=== PATIENT | female | born 1980 | race American Indian/Alaskan Native ===

== ENCOUNTER 2017-07-04 12:18 | Emergency (ER) | payer MEDICAID ==
[2017-07-04 13:06] VITALS: BP 126/82
[2017-07-04] MEDS ORDERED: MOTRIN PO ONE (15:12)
--- NOTE | 2017-07-04 15:15 | Emergency Department Report ---
HPI - General Chief Complaint: Abdominal Pain Time Seen by Provider: 07/04/17 14:51 - HPI HPI: This is a 37-year-old female with no prior medical history other than bilateral tubal ligation couple years ago presents to ED complaining of dysmenorrhea times this month patient states that usually her menstrual cycle lesion that is painful but this cycle that started today a has been more painful than other months. She states that she is having low pelvic cramping and sometimes can feel the pain at the back. She admits mild nausea but no vomiting. She denies dysmenorrhea, frequency, fever, chills, abdominal pain, chest pain shortness of breath. ED Past Medical Hx - Past Medical History Previous Medical History?: No - Social History Smoking Status: Current Every Day Smoker - Medications Home Medications: Home Medications Medication Instructions Recorded Confirmed Last Taken Type Ibuprofen [Motrin 800 MG tab] 800 mg PO TID #30 tablet 07/04/17 Unknown Rx Multivitamin/Iron/Folic Acid [Hm 1 each PO DAILY #60 tablet 07/04/17 Unknown Rx Complete Women Tablet] traMADol [Ultram 50 MG tab] 50 mg PO Q6HR PRN #20 tablet 07/04/17 Unknown Rx ED Review of Systems ROS: Stated complaint: ABDOMINAL/BACK PAIN Other details as noted in HPI Constitutional: denies: chills, fever Eyes: denies: eye pain, eye discharge, vision change ENT: denies: ear pain, throat pain Respiratory: denies: cough, shortness of breath, wheezing Cardiovascular: denies: chest pain, palpitations Endocrine: no symptoms reported Gastrointestinal: denies: abdominal pain, nausea, diarrhea Genitourinary: denies: urgency, dysuria, discharge Musculoskeletal: denies: back pain, joint swelling, arthralgia Skin: denies: rash, lesions Neurological: denies: headache, weakness, paresthesias Psychiatric: denies: anxiety, depression Hematological/Lymphatic: denies: easy bleeding, easy bruising Physical Exam - Physical Exam Vital Signs: Vital Signs 07/04/17 13:02 Temperature 97.7 F Pulse Rate 67 Respiratory 16 Rate Blood Pressure 126/82 O2 Sat by Pulse 98 Oximetry Physical Exam: GENERAL: Alert and oriented x3, no apparent distress, Normal Gait, atraumatic. HEAD: Head is normocephalic and a-traumatic. EYES: Extra ocular muscles are intact. Pupils are equal, round, and reactive to light and accommodation. LUNGS: Symetrical with respiration, No wheezing, no rales or crackles, CTAB. HEART: S1, S2 present, regular rate and rhythm without murmur, no rubs, no gallops. Non tender to palpation ABDOMEN: No organomegaly was noted,Positive bowel sounds, soft, and non- distended. . Nontender to palpation on all Quadrants, NO CVA tenderness. BACK: Full range of motion, no spinal tenderness, nontender to palpation. SKIN: Warm and dry, No lesions, No ulceration or induration present. ED Course Vital Signs 07/04/17 13:02 Temperature 97.7 F Pulse Rate 67 Respiratory 16 Rate Blood Pressure 126/82 O2 Sat by Pulse 98 Oximetry ED Medical Decision Making - Medical Decision Making 37-year-old female presents with dysmenorrhea ED course: Patient received 800 mg of Motrin in the ED I discussed the patient has several causes of dysmenorrhea includes fibroids. I discussed the patient will need to follow-up with her [employer] doctor. Vital signs are normal patient is in no acute distress. Patient states that she had a bilateral tubal ligation and knows that she is not so test is not indicated. Patient had no neuro deficits. Critical care attestation.: If time is entered above; I have spent that time in minutes in the direct care of this critically ill patient, excluding procedure time. ED Disposition Clinical Impression: Dysmenorrhea Disposition: DC-01 TO HOME OR SELFCARE Is pt being admited?: No Does the pt Need Aspirin: No Condition: Stable Instructions: Abdominal Pain (ED), Dysmenorrhea (ED) Additional Instructions: Make sure to follow up with the primary care physician as discussed. Take all your medications as you've been prescribed. If you have any worsening symptoms or develop new symptoms please return to ED immediately. Prescriptions: Ibuprofen [Motrin 800 MG tab] 800 mg PO TID #30 tablet Multivitamin/Iron/Folic Acid [Hm Complete Women Tablet] 1 each PO DAILY #60 tablet traMADol [Ultram 50 MG tab] 50 mg PO Q6HR PRN #20 tablet PRN Reason: Pain Referrals: PRIMARY MD LY [Primary Care Provider] - 3-5 Days GAMA PIMENTEL MD [Referring] - 3-5 Days [facility] [Outside] - 3-5 Days [facility] [Outside] - 3-5 Days Forms: Accompanied Note, Work/School Release Form(ED) Time of Disposition: 15:24
[2017-07-04] MEDS ORDERED: ZOFRAN ODT PO ONE (15:21)
== END 2017-07-04 16:02 | disposition home or self-care (01) ==
LOC: ED 12:18
DX: N94.6 Dysmenorrhea, unspecified (principal); F17.200 Nicotine dependence, unspecified, uncomplicated; Z98.51 Tubal ligation status
CPT/HCPCS: 99282; Q0162

== ENCOUNTER 2018-11-10 22:58 | Emergency (ER) | payer MEDICAID ==
[2018-11-10 23:34] VITALS: BP 154/100
[2018-11-10] MEDS ORDERED: TYLENOL ONE (23:43)
[2018-11-10] MEDS ORDERED: TYLENOL PO ONE (23:45)
[2018-11-11] MEDS ORDERED: FLEXERIL PO ONE (00:54)
[2018-11-11] MEDS ORDERED: TORADOL IM ONE (00:54)
[2018-11-11] MEDS ORDERED: DECADRON IM ONE (00:54)
[2018-11-11] MEDS ORDERED: DECADRON ONE (00:58)
[2018-11-11] MEDS ORDERED: FLEXERIL ONE (00:58)
[2018-11-11] MEDS ORDERED: TORADOL ONE (00:58)
[2018-11-11 01:05] LABS: HCG Qualitative,Urine Negative (Negative)
--- NOTE | 2018-11-11 01:20 | Cat Scan Report ---
CT head/brain wo con INDICATION / CLINICAL INFORMATION: fall. Neck pain. TECHNIQUE: All CT scans at this location are performed using CT dose reduction for ALARA by means of automated e xposure control. COMPARISON: None available. FINDINGS: Ventricle size is normal. No mass or mass effect is seen. There is no evidence of intracranial hemorr fidelia. No obvious area of infarction is identified. Visualized paranasal sinuses are clear. No fractur e is seen. IMPRESSION: No acute findings Signer Name: Miles Stoddard MD FACR Signed: 11/11/2018 1:16 AM Workstation Name: [id number]
--- NOTE | 2018-11-11 01:22 | Cat Scan Report ---
CT cervical spine wo con INDICATION / CLINICAL INFORMATION: fall. Neck pain. TECHNIQUE: All CT scans at this location are performed using CT dose reduction for ALARA by means of automated e xposure control. COMPARISON: None available. FINDINGS: The prevertebral soft tissues are normal in thickness. Mild degenerative changes seen at C5-6. No adriana dence of a fracture. Alignment is normal. No spinal stenosis is seen. The paraspinous soft tissues ar e normal in appearance. IMPRESSION: Mild degenerative change at C5-6 without evidence of a fracture. Signer Name: Miles Stoddard MD FACPricilla Signed: 11/11/2018 1:17 AM Workstation Name: [id number]
--- NOTE | 2018-11-11 01:31 | Emergency Department Report ---
ED Neck Pain/Injury HPI - General Chief Complaint: Neck Pain/Injury Stated Complaint: CANT MOVE NECK Mode of arrival: Ambulatory Limitations: No Limitations - History of Present Illness Initial Comments: pt is a 38 y/o aaf who had a GLF tonight now with 7/10 right posterior neck pain , pt denies loc there is no swelling no deformity no swelling no abrasion laceration or bleeding , pt denies headache pt was immediately ambulatory with steady gait. pain is exacerbated by movement, pain is relieved by rest. MD Complaint: neck injury Onset/Timin -: hour(s) Place: home Severity: moderate Severity scale (0 -10): 7 Quality: aching Consistency: constant Improves With: remaining still Worsens With: movement of neck Context: fall Associated Symptoms: none. denies: headache, fever, numbness, tingling, vertigo, difficulty walking, swollen glands, difficulty swallowing, nausea, vomiting Treatments Prior to Arrival: none - Related Data Previous Rx's Medication Instructions Recorded Last Taken Type Ibuprofen [Motrin 800 MG tab] 800 mg PO TID #30 tablet 07/04/17 Unknown Rx Multivitamin/Iron/Folic Acid [Hm 1 each PO DAILY #60 tablet 07/04/17 Unknown Rx Complete Women Tablet] traMADol [Ultram 50 MG tab] 50 mg PO Q6HR PRN #20 tablet 07/04/[address] (Nf) 50 mg PO TID 10 Days #30 tab 11/11/18 Unknown Rx Menthol/Camphor [[place] 1 applicatio TP QID PRN #1 tube 11/11/18 Unknown Rx Ointment] methOCARBAMOL [Robaxin TAB] 750 mg PO Q8H PRN #30 tablet 11/11/18 Unknown Rx predniSONE [Deltasone] 40 mg PO QDAY 5 Days #10 tab 11/11/18 Unknown Rx traMADol [Ultram] 50 mg PO Q6HR PRN #12 tablet 11/11/18 Unknown Rx Allergies Allergy/AdvReac Type Severity Reaction Status Date / Time No Known Allergies Allergy Verified 11/10/18 23:42 ED Review of Systems ROS: Stated complaint: CANT MOVE NECK Other details as noted in HPI Constitutional: denies: chills, fever Eyes: denies: eye pain, eye discharge, vision change ENT: denies: ear pain, throat pain Respiratory: denies: cough, shortness of breath, wheezing Cardiovascular: denies: chest pain, palpitations Endocrine: no symptoms reported Gastrointestinal: denies: abdominal pain, nausea, vomiting, diarrhea Genitourinary: denies: urgency, dysuria, discharge Musculoskeletal: arthralgia Skin: denies: rash, lesions Neurological: denies: headache, weakness, numbness, paresthesias, confusion, abnormal gait Psychiatric: denies: anxiety, depression Hematological/Lymphatic: denies: easy bleeding, easy bruising ED Past Medical Hx - Past Medical History Previous Medical History?: No - Surgical History Past Surgical History?: No - Social History Smoking Status: Current Every Day Smoker Substance Use Type: Marijuana - Medications Home Medications: Home Medications Medication Instructions Recorded Confirmed Last Taken Type Ibuprofen [Motrin 800 MG tab] 800 mg PO TID #30 tablet 07/04/17 Unknown Rx Multivitamin/Iron/Folic Acid [Hm 1 each PO DAILY #60 tablet 07/04/17 Unknown Rx Complete Women Tablet] traMADol [Ultram 50 MG tab] 50 mg PO Q6HR PRN #20 tablet 07/04/[address] (Nf) 50 mg PO TID 10 Days #30 tab 11/11/18 Unknown Rx Menthol/Camphor [[place] 1 applicatio TP QID PRN #1 tube 11/11/18 Unknown Rx Ointment] methOCARBAMOL [Robaxin TAB] 750 mg PO Q8H PRN #30 tablet 11/11/18 Unknown Rx predniSONE [Deltasone] 40 mg PO QDAY 5 Days #10 tab 11/11/18 Unknown Rx traMADol [Ultram] 50 mg PO Q6HR PRN #12 tablet 11/11/18 Unknown Rx ED Physical Exam - General Limitations: No Limitations General appearance: alert, in no apparent distress - Head Head exam: Present: atraumatic, normocephalic - Eye Eye exam: Present: normal appearance, PERRL, EOMI Pupils: Present: normal accommodation - ENT ENT exam: Present: normal orophraynx, mucous membranes moist, TM's normal bilaterally, normal external ear exam - Neck Neck exam: Present: normal inspection, tenderness (mild posterior vertebral point tenderness no crepitus no swelling no deformity pain with rom ), lymphadenopathy. Absent: meningismus, thyromegaly - Expanded Neck Exam Expanded Neck exam: Present: tenderness. Absent: midline deformity, anterior neck swelling, thyroid mass, carotid bruit, tracheal deviation - Respiratory Respiratory exam: Present: normal lung sounds bilaterally. Absent: respiratory distress, wheezes, rhonchi, stridor, chest wall tenderness - Cardiovascular Cardiovascular Exam: Present: regular rate, normal rhythm, normal heart sounds. Absent: systolic murmur, diastolic murmur, rubs, gallop - GI/Abdominal GI/Abdominal exam: Present: soft, normal bowel sounds. Absent: distended, tenderness, guarding, rebound, rigid, bruit, hernia - Rectal Rectal exam: Present: deferred - Extremities Exam Extremities exam: Present: normal inspection, full ROM, normal capillary refill. Absent: tenderness, pedal edema, joint swelling, calf tenderness - Back Exam Back exam: Present: normal inspection, full ROM, muscle spasm, paraspinal tenderness, vertebral tenderness. Absent: tenderness, CVA tenderness (R), CVA tenderness (L), rash noted - Expanded Back Exam Expanded Back exam: Absent: saddle anesthesia Back exam: Negative Straight Leg Raising: Left, Right - Neurological Exam Neurological exam: Present: alert, oriented X3, CN II-XII intact, normal gait, reflexes normal. Absent: motor sensory deficit - Expanded Neurological Exam Expanded Patient oriented to: Present: person, place, time Speech: Present: fluid speech Cranial nerves: EOM's Intact: Normal, Gag Reflex: Normal, Tongue Deviation: Normal, Nystagmus: Normal, Facial Sensation: Normal Cerebellar function: Finger to Nose: Normal, Heel to Collazo: Normal, Romberg: Normal Upper motor neuron: Zane Neglect: Normal, Pronator Drift: Normal, Babinski Sign: Normal, Sensory Extinction: Normal Sensory exam: Upper Extremity Light Touch: Normal, Upper Extremity Pin Prick: Normal, Upper Extremity Temperature: Normal, UE 2 Point Discrimination: Normal, Lower Extremity Light Touch: Normal, Lower Extremity Pin Prick: Normal, Lower Extremity Temperature: Normal, LE 2 Point Discrimination: Normal Motor strength exam: RUE: 5, LUE: 5, RLE: 5, LLE: 5 DTR: bicep (R): 2+, bicep (L): 2+, ankle (R): 2+, ankle (L): 2+ Best Eye Response (Ban): (4) open spontaneously Best Motor Response (Stanley): (6) obeys commands Best Verbal Response (Stanley): (5) oriented Ban Total: 15 - Psychiatric Psychiatric exam: Present: normal affect, normal mood - Skin Skin exam: Present: warm, dry, intact, normal color. Absent: rash ED Course Vital Signs 11/10/18 23:30 Temperature 97.7 F Pulse Rate 97 H Respiratory 18 Rate Blood Pressure 154/100 O2 Sat by Pulse 100 Oximetry ED Medical Decision Making - Radiology Data Radiology results: report reviewed, image reviewed - Medical Decision Making cT mild c5-C6 DDD , plan nsaid muscle relaxants, moist heat therapy , soft neck collar follow up with ortho in 2-3 days return to ed symptoms worsen, pt dc'd to home in stable condition at this time pain reducted to 2/10 soft collar intact. Critical care attestation.: If time is entered above; I have spent that time in minutes in the direct care of this critically ill patient, excluding procedure time. ED Disposition Clinical Impression: Neck sprain Qualifiers: Encounter type: initial encounter Qualified Code(s): S13.9XXA - Sprain of joints and ligaments of unspecified parts of neck, initial encounter Disposition: DC-01 TO HOME OR SELFCARE Is pt being admited?: No Does the pt Need Aspirin: No Condition: Stable Instructions: Soft Cervical Collar (ED), Cervical Spine Strain (ED) Prescriptions: predniSONE [Deltasone] 40 mg PO QDAY 5 Days #[address] (Nf) 50 mg PO TID 10 Days #30 tab methOCARBAMOL [Robaxin TAB] 750 mg PO Q8H PRN #30 tablet PRN Reason: Muscle Spasm Menthol/Camphor [[place] Ointment] 1 applicatio TP QID PRN #1 tube PRN Reason: Pain traMADol [Ultram] 50 mg PO Q6HR PRN #12 tablet PRN Reason: Severe Pain Referrals: HAYDEN BESS MD [Staff Physician] - 3-5 Days Forms: Work/School Release Form(ED) Time of Disposition: 01:44
== END 2018-11-11 02:01 | disposition home or self-care (01) ==
LOC: ED 22:58
DX: S13.9XXA Sprain of joints and ligaments of unspecified parts of neck, initial encounter (principal); M50.322 Other cervical disc degeneration at C5-C6 level; F17.200 Nicotine dependence, unspecified, uncomplicated; F12.10 Cannabis abuse, uncomplicated; Z79.899 Other long term (current) drug therapy; X58.XXXA Exposure to other specified factors, initial encounter; Y93.89 Activity, other specified; Y92.89 Other specified places as the place of occurrence of the external cause; Y99.8 Other external cause status
CPT/HCPCS: 70450; 72125; 81025; 96372; 99284; J1100; J1885

== ENCOUNTER 2021-09-02 12:33 | Emergency (ER) | payer SELFPAY ==
[2021-09-02] MEDS ORDERED: KETOROLAC 10 MG TAB PO ONE (16:23)
[2021-09-02 17:16] LABS: Bilirubin,Urine NEG (Negative); Blood,Urine MOD (Negative); Color,Urine Yellow (Yellow); Mucus,Urine FEW /HPF; Protein,Urine <15 mg/dL mg/dL (Negative); Urobilinogen,Urine < 2.0 mg/dL (<2.0)
[2021-09-02 17:17] LABS: HCG Qualitative,Urine Negative (Negative)
--- NOTE | 2021-09-02 17:41 | Emergency Department Report ---
ED Abdominal Pain HPI - General Chief Complaint: Abdominal Pain Stated Complaint: ABDOMINAL PAIN Time Seen by Provider: 09/02/21 16:04 Source: EMS Mode of arrival: Stretcher Limitations: No Limitations - History of Present Illness Initial Comments: 41-year-old black female with a past medical history of sciatica and kidney stones presents to the emergency department for evaluation of left abdominal and flank pain that started this morning. She states that while she was getting dressed for work this morning that she started to have severe pain to her left flank and abdominal area that was so bad that it made her sweaty and nauseated, and she vomited once. She states that pain was 9 out of 10 and persisted for about 20 minutes. States that pain started to ease up but never went away completely. She denies dysuria, fever, vaginal discharge. She states that pain feels similar to her how she felt when she had a kidney stone about 10 years ago except that she is able to urinate this time. MD Complaint: abdominal pain, flank pain -: Sudden, minutes(s) (20) Location: LLQ, L flank Radiation: none Migration to: no migration Severity scale (0 -10): 9 Quality: cramping, aching Consistency: intermittent Associated Symptoms: nausea, vomiting, chills. denies: diarrhea, fever, constipation, dysuria, hematemesis, hematochezia, melena, hematuria, anorexia, syncope - Related Data LMP Date: 09/02/21 Previous Rx's Medication Instructions Recorded Last Taken Type Acetaminophen/Codeine [Tylenol 1 tab PO Q6H PRN #12 tab 09/02/21 Unknown Rx /Codeine # 3 tab] Ketorolac [Toradol] 10 mg PO Q6H PRN #12 tab 09/02/21 Unknown Rx Ondansetron [Zofran Odt] 4 mg PO Q8HR PRN #12 tab.rapdis 09/02/21 Unknown Rx cephALEXin [Keflex] 500 mg PO BID #14 cap 09/02/21 Unknown Rx Allergies Allergy/AdvReac Type Severity Reaction Status Date / Time No Known Allergies Allergy Verified 09/02/21 13:31 ED Review of Systems ROS: Stated complaint: ABDOMINAL PAIN Other details as noted in HPI Comment: All other systems reviewed and negative Constitutional: chills. denies: fever Respiratory: denies: shortness of breath, SOB with exertion, SOB at rest Cardiovascular: denies: chest pain, palpitations, dyspnea on exertion, orthopnea, edema, syncope, paroxysmal nocturnal dyspnea Gastrointestinal: abdominal pain, nausea, vomiting. denies: diarrhea, hematemesis, melena, hematochezia Genitourinary: denies: urgency, dysuria, frequency, hematuria, discharge Musculoskeletal: back pain Neurological: denies: headache ED Past Medical Hx - Past Medical History Previous Medical History?: Yes Hx Kidney Stones: Yes - Social History Smoking Status: Current Every Day Smoker Substance Use Type: Marijuana - Medications Home Medications: Home Medications Medication Instructions Recorded Confirmed Last Taken Type Acetaminophen/Codeine [Tylenol 1 tab PO Q6H PRN #12 tab 09/02/21 Unknown Rx /Codeine # 3 tab] Ketorolac [Toradol] 10 mg PO Q6H PRN #12 tab 09/02/21 Unknown Rx Ondansetron [Zofran Odt] 4 mg PO Q8HR PRN #12 tab.rapdis 09/02/21 Unknown Rx cephALEXin [Keflex] 500 mg PO BID #14 cap 09/02/21 Unknown Rx ED Physical Exam - General Limitations: No Limitations General appearance: alert, in no apparent distress - Head Head exam: Present: atraumatic, normocephalic - Eye Eye exam: Present: normal appearance. Absent: conjunctival injection - Neck Neck exam: Present: normal inspection, full ROM. Absent: tenderness, lymphadenopathy - Respiratory Respiratory exam: Present: normal lung sounds bilaterally. Absent: respiratory distress, wheezes, rales, rhonchi, stridor, chest wall tenderness - Cardiovascular Cardiovascular Exam: Present: regular rate, normal heart sounds - GI/Abdominal GI/Abdominal exam: Present: soft, normal bowel sounds. Absent: distended, tenderness, guarding, rebound, rigid - Extremities Exam Extremities exam: Present: normal inspection, normal capillary refill. Absent: pedal edema, joint swelling, calf tenderness - Back Exam Back exam: Present: normal inspection, full ROM, CVA tenderness (L). Absent: tenderness, CVA tenderness (R), vertebral tenderness - Neurological Exam Neurological exam: Present: alert, oriented X3, normal gait - Psychiatric Psychiatric exam: Present: normal affect, normal mood - Skin Skin exam: Present: warm, dry, intact, normal color ED Course Vital Signs 09/02/21 09/02/21 09/02/21 13:28 16:47 18:08 Temperature 98.4 F 98.6 F Pulse Rate 92 H 62 Respiratory 16 16 18 Rate Blood Pressure 110/80 110/72 [Left] O2 Sat by Pulse 99 100 Oximetry ED Medical Decision Making - Medical Decision Making 41-year-old black female with a past medical history of sciatica and kidney stones presents to the emergency department for evaluation of left abdominal and flank pain that started this morning. She states that while she was getting dressed for work this morning that she started to have severe pain to her left flank and abdominal area that was so bad that it made her sweaty and nauseated, and she vomited once. She states that pain was 9 out of 10 and persisted for about 20 minutes. States that pain started to ease up but never went away c ompletely. She denies dysuria, fever, vaginal discharge. She states that pain feels similar to her how she felt when she had a kidney stone about 10 years ago except that she is able to urinate this time. Pain significantly improved after Toradol. Urine positive for UTI with moderate amounts of blood. Patient will be treated with 7-day course of Keflex along with Toradol, Tylenol 3, and Zofran to use as needed at home. She is advised to take medications as prescribed and follow-up with primary care provider or urology if worsening symptoms. She verbalizes understanding of and agreement with plan of care. Critical care attestation.: If time is entered above; I have spent that time in minutes in the direct care of this critically ill patient, excluding procedure time. ED Disposition Clinical Impression: Flank pain Abdominal pain Qualifiers: Abdominal location: left lower quadrant Qualified Code(s): R10.32 - Left lower quadrant pain UTI (urinary tract infection) Qualifiers: Urinary tract infection type: acute cystitis Hematuria presence: with hematuria Qualified Code(s): N30.01 - Acute cystitis with hematuria Disposition: HOME / SELF CARE / HOMELESS Is pt being admited?: No Does the pt Need Aspirin: No Condition: Stable Instructions: Antibiotic Medicine, Adult, [id number], Urinary Tract Infection, Adult, [id number], Abdominal Pain, Adult, [id number], Flank Pain, Adult, [id number], Abdominal Pain (ED) Additional Instructions: Take medications as prescribed. Drink plenty of noncaffeinated fluids daily. Follow-up with primary care provider or urology for further evaluation and management if worsening symptoms. Return to the emergency department as needed. Prescriptions: cephALEXin [Keflex] 500 mg PO BID #14 cap Ketorolac [Toradol] 10 mg PO Q6H PRN #12 tab PRN Reason: Pain Acetaminophen/Codeine [Tylenol /Codeine # 3 tab] 1 tab PO Q6H PRN #12 tab PRN Reason: Pain , Severe (7-10) Ondansetron [Zofran Odt] 4 mg PO Q8HR PRN #12 tab.rapdis PRN Reason: Nausea And Vomiting Referrals: NELIDA DE LA FUENTE MD [Staff Physician] - 3-5 Days LITZY REYES MD [Staff Physician] - 3-5 Days Forms: Work/School Release Form(ED) Time of Disposition: 17:40
[2021-09-02 18:09] VITALS: BP 110/72
== END 2021-09-02 18:09 | disposition home or self-care (01) ==
LOC: ED 12:33
DX: N39.0 Urinary tract infection, site not specified (principal); R10.32 Left lower quadrant pain; F17.200 Nicotine dependence, unspecified, uncomplicated; F12.90 Cannabis use, unspecified, uncomplicated; Z87.442 Personal history of urinary calculi; Z79.899 Other long term (current) drug therapy
CPT/HCPCS: 81001; 81025; 99283